=== PATIENT | female | born 1980 | race Caucasian/White ===

== ENCOUNTER 2016-04-16 09:51 | Emergency (ER) | payer OTHER ==
[~2016-04-16 09:51] MED LIST: MOTRIN IB200 M1 PO; PERCOCET 5-3251 EACH PO; PRENATAL1 TA2 PO; ULTRAM(MONOGRAP50 MG PO
[2016-04-16 11:25] LABS: ABSOLUTE BASOPHIL COUNT 0 /CUMM (0.0-0.2); ABSOLUTE EOSINOPHIL COUNT 0.1 /CUMM (0.0-0.7); ABSOLUTE GRANULOCYTE CT 7.9 /CUMM (1.4-6.5); ABSOLUTE LYMPH COUNT 2.7 /CUMM (1.2-3.4); ABSOLUTE MONOCYTE COUNT 0.3 /CUMM (0.10-0.60); BASOPHIL % 0.3 % (0.0-2.0); EOSINOPHIL % 1.3 % (0-5); GRANULOCYTE % 71.4 % (42.2-75.2); HEMATOCRIT 42.2 % (37-47); MEAN CORPUSCULAR HGB 28.6 PG (27.0-31.0); MEAN PLATELET VOLUME 7.4 FL (7.4-10.4); PLATELET COUNT 244 /CUMM (130-400); RBC DISTRIBUTION WIDTH 13.2 % (11.5-14.5); RED BLOOD CELL CT 5.02 /CUMM (4.20-5.40)
--- NOTE | 2016-04-16 11:44 | ED INFLUENZA/URI COMPLAINT ---
History of Present Illness General Chief Complaint: Upper Respiratory Sx/Fever Stated Complaint: COUGH, CONGESTION, CP WHEN COUGHING, X 10 DAYS Source: patient Exam Limitations: no limitations Vital Signs & Intake/Output Vital Signs & Intake/Output Vital Signs Date Time Temp Pulse Resp B/P Pulse O2 O2 Flow FiO2 Ox Delivery Rate 04/16 1204 98.2 107 22 110/70 96 Room Air 04/16 1118 96 Room Air 04/16 1007 98.1 112 22 108/79 97 Room Air Allergies Coded Allergies: MDX - Cinnamon (CINNAMON) (Intermediate, HIVES 10/16/14) No Known Drug Allergies (02/20/16) Reconcile Medications Benzonatate 200 MG CAPSULE 1 CAP PO TID PRN COUGH Ibuprofen 800 MG TABLET 1 TAB PO Q8 PRN PAIN Tramadol HCl 50 MG TABLET 1-2 TAB PO Q6 PRN pain Triage Note: PER PT COUGH X 10 DAYS. NO COUGH OBSERVED WHEN WAITING TO REGISTER, THEN COUGHING NONSTOP WITH TRIAGE. ASLO SPEAKING IN WHISPER, DID NOT SEE A DR SHANDRA 04/04/16 Triage Nurses Notes Reviewed? yes : No Patient currently breastfeeds: No HPI: Patient is a 35-year-old female presents complaining of nonproductive cough for approximately 10 days. Patient also reports anterior chest pain for the past 4- 5 days. Pain is sharp pain that is continuous worsens with cough. Pain is currently moderate to severe. Patient has been taking cough medication over-the -counter without improvement. Patient had a cholecystectomy approximately one month ago. Patient also with rapid heart rate. Patient denies fevers, chills, sick contacts Past History Travel History Traveled to [place] past 21 day No Medical History Any Pertinent Medical History? 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 No Review of Systems Review of Systems Constitutional: Denies: chills, fever. EENTM: Reports: throat pain (voice hoarsness). Respiratory: Reports: cough, short of breath. Denies: hemoptysis, sputum production. Cardiovascular: Reports: chest pain. GI: Reports: no symptoms. Genitourinary: Reports: no symptoms. Musculoskeletal: Reports: no symptoms. Skin: Reports: no symptoms. Neurological/Psychological: Reports: no symptoms. Hematologic/Endocrine: Reports: no symptoms. Immunologic/Allergic: Reports: no symptoms. Physical Exam Physical Exam General Appearance: well developed/nourished, alert, awake Head: atraumatic, normal appearance Eyes: Bilateral: normal appearance, PERRL, EOMI. Ears, Nose, Throat: normal ENT inspection, moist mucous membrane, hearing grossly normal, VOICE HOARSENESS Neck: normal inspection, supple, full range of motion Respiratory: normal breath sounds Cardiovascular: tachycardia (regular rhythm) Gastrointestinal: soft, non-tender Back: normal inspection, normal range of motion Extremities: normal inspection, normal capillary refill, normal range of motion, no edema, no calf tenderness Neurologic/Psych: no motor/sensory deficits, awake, alert, oriented x 3, normal gait, normal mood/affect Skin: intact, normal color, warm/dry Lymphatic: no anterior cervical desiree Core Measures Severe Sepsis Present: No Septic Shock Present: No Progress Differential Diagnosis: influenza, pneumonia, pharyngitis, bronchitis, PE, musculoskeletal pain Plan of Care: Orders Procedure Date/time Status Add-on Test (ER Only) 04/16 1149 Active D-DIMER 04/16 1116 Complete HUMAN BETA HCG SCREEN 04/16 1111 Complete COMPREHENSIVE METABOLIC PANEL 04/16 1111 Complete CBC WITHOUT DIFFERENTIAL 04/16 1111 Complete Laboratory Tests 04/16/16 1116: Anion Gap 10, Estimated GFR > 60, BUN/Creatinine Ratio 34.0 H, Glucose 85, Calcium 9.7, Total Bilirubin 0.4, AST 19, ALT 40, Alkaline Phosphatase 79, Total Protein 7.6, Albumin 4.7, Globulin 2.9, Albumin/Globulin Ratio 1.6, Total Beta HCG NEGATIVE, D-Dimer 316 H, CBC w Diff NO MAN DIFF REQ, RBC 5.02, MCV 84.0, MCH 28.6, RDW 13.2, MPV 7.4, Gran % 71.4, Lymphocytes % 24.1, Monocytes % 2.9, Eosinophils % 1.3, Basophils % 0.3, Absolute Granulocytes 7.9 H, Absolute Lymphocytes 2.7, Absolute Monocytes 0.3, Absolute Eosinophils 0.1, Absolute Basophils 0, PUBS MCHC 34.0 1320: Patient re-evaluated, resting comfortably. Discussed results of labs and chest x-ray with patient. awaiting results of CTA 1405: Results of CTA discussed with patient. Patient resting comfortably, improvement in chest pain after Toradol. Patient appears stable for discharge. (ONOFRE KEARNS,BRAD) Diagnostic Imaging: Viewed by Me: Radiology Read. Discussed w/RAD: Radiology Read. Radiology Impression: PATIENT: JAYNA TYLER PRESENT AGE: 35 PATIENT ACCOUNT NO: [id number] : 81 LOCATION: [facility] ORDERING PHYSICIAN: BRAD KEARNS SERVICE DATE: 04/16/16 EXAM TYPE: RAD - XRY-CHEST XRAY, PA AND LATERAL EXAMINATION: XR CHEST CLINICAL INFORMATION: Cough and chest pain. Evaluate for pneumonia. COMPARISON: None. TECHNIQUE: PA and lateral views of the chest were obtained. FINDINGS: Lungs are well expanded and clear. Cardiomediastinal silhouette, pulmonary ashly, pleura and bones are normal in appearance. There are cholecystectomy clips within the upper abdomen.\E\ IMPRESSION: No acute cardiopulmonary disease. DICTATED BY: MARY THURSTON MD DATE/TIME DICTATED:04/16/161253 CHEESE SUPERVISOR:WOO DATE/TIME TRANSCRIBED:04/16/161253 CONFIDENTIAL, DO NOT COPY WITHOUT APPROPRIATE AUTHORIZATION. <Electronically signed in Other Vendor System> SIGNED BY: MARY THURSTON MD 04/16/16 1300, PATIENT: JAYNA TYLER PRESENT AGE: 35 PATIENT ACCOUNT NO: [id number] : 81 LOCATION: [facility] ORDERING PHYSICIAN: BRAD KEARNS SERVICE DATE: 04/16/16 EXAM TYPE: CAT - CTA CHEST-PULMONARY EMBOLISM EXAMINATION: CT ANGIOGRAM OF THE CHEST WITH CONTRAST (CT PULMONARY ANGIOGRAM FOR PE) CLINICAL INFORMATION: 35-year-old female with tachycardia, shortness of breath and elevated D-dimer test. COMPARISON: CXR from 04/16/2016. TECHNIQUE: Prior to contrast administration, noncontrast localization images were obtained. Subsequently, multidetector volumetric imaging was performed from the thoracic inlet to below the diaphragms following the administration of 95 mL of Optiray 350 intravenous contrast. No contrast reaction reported. Sagittal, coronal, and MIP oblique sagittal reformatted images were obtained on the CT workstation, uploaded to PACS, and reviewed. Total exam dose-length product 174 mGy-cm FINDINGS: QUALITY OF STUDY/ CONTRAST BOLUS: Satisfactory. PULMONARY ARTERIES: Pulmonary arteries are normal in caliber and there are no embolic filling defects within the main, lobar or segmental vessels. THORACIC AORTA: Thoracic aorta is normal in caliber; no acute intramural hematoma, aneurysm or dissection. LUNGS AND PLEURA: The trachea and central airways are widely patent and normal in caliber. Minimal atelectasis is present within the dependent aspect of each lower lobe. No pulmonary consolidation, interstitial edema, pleural effusion or pneumothorax. MEDIASTINUM : Normal heart size. No pericardial effusion. The esophagus and visualized portion of the thyroid gland are unremarkable. LYMPHATICS: No pathologic sized axillary, hilar or mediastinal lymph nodes. UPPER ABDOMEN: No acute findings. The gallbladder is surgically absent. The adrenal glands are normal. No reflux of contrast into the hepatic veins to suggest elevated right heart pressures. OSSEOUS STRUCTURES: The thoracic vertebra have normal density, height and alignment. Incidentally noted is a 1 cm wide focus of nonaggressive sclerosis and trabecular thickening in the right manubrium, possibly a sclerotic hemangioma or enchondroma. There are no suspicious osseous lesions within the thorax. IMPRESSION: No acute imaging findings within the chest. No evidence of pulmonary embolism, cardiomegaly, pneumonia or pleural effusion. DICTATED BY: MARY THURSTON MD DATE/TIME DICTATED:04/16/161344 CHEESE SUPERVISOR:WOO DATE/TIME TRANSCRIBED:04/16/161344 CONFIDENTIAL, DO NOT COPY WITHOUT APPROPRIATE AUTHORIZATION. <Electronically signed in Other Vendor System> SIGNED BY: MARY THURSTON MD 04/16/16 1358 Initial ED EKG: none Departure Departure Time of Disposition: 1409 Disposition: HOME OR SELF CARE Condition: Stable Clinical Impression Primary Impression: Viral upper respiratory infection Referrals: MIRI MOSER MD PATIENT HAS NO PRIMARY CARE DR (PCP/Family) Additional Instructions: Drink plenty fluids and rest. Follow-up with the primary doctor listed in your discharge paperwork to establish a doctor for further evaluation. Call Sunday or Sunday for appointment. Return to the emergency department if breathing worsening, unable stay hydrated, or worsening of symptoms. Departure Forms: Customer Survey General Discharge Information Prescriptions: Current Visit Scripts Benzonatate 1 CAP PO TID PRN COUGH #30 CAP Ibuprofen 1 TAB PO Q8 PRN PAIN #20 TAB Tramadol HCl 1-2 TAB PO Q6 PRN pain #15 TAB
--- NOTE | 2016-04-16 13:00 | RADIOLOGY REPORT ---
EXAMINATION: XR CHEST CLINICAL INFORMATION: Cough and chest pain. Evaluate for pneumonia. COMPARISON: None. TECHNIQUE: PA and lateral views of the chest were obtained. FINDINGS: Lungs are well expanded and clear. Cardiomediastinal silhouette, pulmonary ashly, pleura and bones are normal in appearance. There are cholecystectomy clips within the upper abdomen.\E\ IMPRESSION: No acute cardiopulmonary disease.
--- NOTE | 2016-04-16 13:58 | CT SCAN REPORT ---
EXAMINATION: CT ANGIOGRAM OF THE CHEST WITH CONTRAST (CT PULMONARY ANGIOGRAM FOR PE) CLINICAL INFORMATION: 35-year-old female with tachycardia, shortness of breath and elevated D-dimer test. COMPARISON: CXR from 04/16/2016. TECHNIQUE: Prior to contrast administration, noncontrast localization images were obtained. Subsequently, multidetector volumetric imaging was performed from the thoracic inlet to below the diaphragms following the administration of 95 mL of Optiray 350 intravenous contrast. No contrast reaction reported. Sagittal, coronal, and MIP oblique sagittal reformatted images were obtained on the CT workstation, uploaded to PACS, and reviewed. Total exam dose-length product 174 mGy-cm FINDINGS: QUALITY OF STUDY/CONTRAST BOLUS: Satisfactory. PULMONARY ARTERIES: Pulmonary arteries are normal in caliber and there are no embolic filling defects within the main, lobar or segmental vessels. THORACIC AORTA: Thoracic aorta is normal in caliber; no acute intramural hematoma, aneurysm or dissection. LUNGS AND PLEURA: The trachea and central airways are widely patent and normal in caliber. Minimal atelectasis is present within the dependent aspect of each lower lobe. No pulmonary consolidation, interstitial edema, pleural effusion or pneumothorax. MEDIASTINUM: Normal heart size. No pericardial effusion. The esophagus and visualized portion of the thyroid gland are unremarkable. LYMPHATICS: No pathologic sized axillary, hilar or mediastinal lymph nodes. UPPER ABDOMEN: No acute findings. The gallbladder is surgically absent. The adrenal glands are normal. No reflux of contrast into the hepatic veins to suggest elevated right heart pressures. OSSEOUS STRUCTURES: The thoracic vertebra have normal density, height and alignment. Incidentally noted is a 1 cm wide focus of nonaggressive sclerosis and trabecular thickening in the right manubrium, possibly a sclerotic hemangioma or enchondroma. There are no suspicious osseous lesions within the thorax. IMPRESSION: No acute imaging findings within the chest. No evidence of pulmonary embolism, cardiomegaly, pneumonia or pleural effusion.
[2016-04-16] MEDS ORDERED: TRAMADOL HCL50 M1 PO (14:11)
[2016-04-16] MEDS ORDERED: IBUPROFEN800 M1 PO (14:11)
[2016-04-16] MEDS ORDERED: BENZONATATE200 M1 PO (14:11)
[2016-04-16 14:17] VITALS: BP 108/68
== END 2016-04-16 14:19 ==
LOC: ERH 09:51
PROVIDERS: Emergency Medicine
DX: J06.9 Acute upper respiratory infection, unspecified (principal); R07.9 Chest pain, unspecified
CPT/HCPCS: 96374; J1885

== ENCOUNTER 2016-09-06 15:48 | Emergency (ER) | payer OTHER ==
[~2016-09-06] VITALS: Ht 162.6 cm; Wt 56.2 kg
[~2016-09-06 15:48] MED LIST changes: +BENZONATATE200 M1 PO; +IBUPROFEN800 M1 PO; +TRAMADOL HCL50 M1 PO
[2016-09-06 16:22] LABS: ABSOLUTE BASOPHIL COUNT 0 /CUMM (0.0-0.2); ABSOLUTE EOSINOPHIL COUNT 0.1 /CUMM (0.0-0.7); ABSOLUTE GRANULOCYTE CT 6.5 /CUMM (1.4-6.5); ABSOLUTE LYMPH COUNT 2.5 /CUMM (1.2-3.4); ABSOLUTE MONOCYTE COUNT 0.2 /CUMM (0.10-0.60); BASOPHIL % 0.3 % (0.0-2.0); EOSINOPHIL % 1.5 % (0-5); HEMATOCRIT 41.1 % (37-47); MEAN CORPUSCULAR HGB 28.7 PG (27.0-31.0); MEAN CORPUSCULAR HGB CONC 33.8 G/DL (33.0-37.0); MEAN CORPUSCULAR VOLUME 84.9 FL (81.0-99.0); MEAN PLATELET VOLUME 7.8 FL (7.4-10.4); PLATELET COUNT 208 /CUMM (130-400); RBC DISTRIBUTION WIDTH 13.2 % (11.5-14.5); RED BLOOD CELL CT 4.84 /CUMM (4.20-5.40); WHITE BLOOD CELL COUNT 9.4 /CUMM (4.8-10.8)
--- NOTE | 2016-09-06 17:03 | ED GENERAL ADULT ---
See Addendum History of Present Illness General Chief Complaint: Abdominal Pain/Flank Pain Stated Complaint: 9 WKS PREG LBP RADIATING TO ABD Source: patient Exam Limitations: no limitations Vital Signs & Intake/Output Vital Signs & Intake/Output Vital Signs Date Time Temp Pulse Resp B/P B/P Pulse O2 O2 Flow FiO2 Mean Ox Delivery Rate 09/06 2212 97.6 95 16 107/68 98 Room Air 09/06 1801 97.7 90 16 113/67 100 Room Air 09/06 1553 97.1 116 16 123/81 99 Room Air Allergies Coded Allergies: cinnamon (HIVES 09/06/16) Reconcile Medications Amoxicillin 500 MG TABLET 1 TAB PO BID uti Benzonatate 200 MG CAPSULE 1 CAP PO TID PRN COUGH Ibuprofen 800 MG TABLET 1 TAB PO Q8 PRN PAIN Oxycodone HCl/Acetaminophen (Percocet 5-325 MG Tablet) 5 MG-325 MG TABLET 1 TAB PO BID PRN pain Pnv#102/Iron/Folate #1/Dss/Dha (Vitafol Fe+ Docusate Combo Pck) 90 MG IRON-1 MG- 50 MG-200 MG CAPSULE 1 TAB PO DAILY (Reported) Progesterone,Micronized (Progesterone) 100 MG CAPSULE 1 CAP PO BID HRT ( Reported) Tramadol HCl 50 MG TABLET 1-2 TAB PO Q6 PRN pain Triage Note: PT STATES THAT SHE IS 9 WEEKS AND THAT YESTERDAY SHE WOKE WITH BILATERAL FLANK PAIN THAT RADIATES INTO HER GROIN SINCE YESTERDAY AM. PT HAS HISTORY OF KIDNEY INFECTION AND STATES THAT IT FEELS THE SAME Triage Nurses Notes Reviewed? yes Onset: Abrupt Duration: hour(s): Timing: recent history : Yes Patient currently breastfeeds: No HPI: 09/06/16 5:42 PM 35-year-old female presents to the emergency department complaining of suprapubic abdominal pain and right-sided flank pain. The patient states that she is currently 9 weeks . She is a 2 para 1. Her first was uncomplicated but she was delivered by . She says she's also had kidney infections in the past. She is also status post cholecystectomy. She also has a history of kidney stones. She denies fever or vaginal bleeding. She does admit to dysuria. The onset of the symptoms were abrupt, the duration was just today, the severity is significant as her symptoms required her to come to the emergency department for care. Past History Travel History Traveled to [place] past 21 day No Medical History Any Pertinent Medical History? 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 No Review of Systems Review of Systems Constitutional: Denies: fever. EENTM: Denies: visual changes. Respiratory: Denies: short of breath. Cardiovascular: Denies: chest pain. GI: Reports: abdominal pain. Genitourinary: Reports: dysuria. Musculoskeletal: Reports: back pain. Skin: Denies: rash. Neurological/Psychological: Reports: no symptoms. Hematologic/Endocrine: Denies: bleeding. Immunologic/Allergic: Reports: no symptoms. Physical Exam Physical Exam General Appearance: well developed/nourished, alert, awake, anxious, mild distress Head: atraumatic, normal appearance Eyes: Bilateral: normal appearance, PERRL, EOMI. Ears, Nose, Throat: normal pharynx, normal ENT inspection Neck: normal inspection, supple, full range of motion Respiratory: normal breath sounds, chest non-tender, no respiratory distress Cardiovascular: regular rate/rhythm Peripheral Pulses: 4+ radial (R), 4+ radial (L) Gastrointestinal: soft, tenderness Back: normal range of motion Extremities: normal inspection, normal range of motion Neurologic/Psych: no motor/sensory deficits, awake, alert, oriented x 3 Skin: intact, normal color, warm/dry Core Measures ACS in differential dx? No CVA/TIA Diagnosis: No Severe Sepsis Present: No Septic Shock Present: No Progress Differential Diagnoses I considered the following diagnoses in my evaluation of the patient: [Ectopic , threatened , UTI, pyelonephritis, appendicitis] Plan of Care: Orders Procedure Date/time Status Add-on Test (ER Only) 09/06 172 Active Add-on Test (ER Only) 09/06 1721 Active CULTURE,URINE 09/06 1621 Active URINALYSIS 09/06 155 Complete HUMAN BETA HCG TITRE 09/06 1556 Complete COMPREHENSIVE METABOLIC PANEL 09/06 155 Complete CBC WITHOUT DIFFERENTIAL 09/06 155 Complete Current Medications Sig/Tomi Start time Last Medication Dose Stop Time Status Admin Acetaminophen 1,000 MG ONCE ONE 09/06 1800 CAN (Ofirmev) 09/06 1801 Laboratory Tests 09/06/16 1621: Urine Color YEL, Urine Clarity CLEAR, Urine pH 6.0, Ur Specific [place] 1.025, Urine Protein NEG, Urine Ketones NEG, Urine Nitrite NEG, Urine Bilirubin NEG, Urine Urobilinogen 0.2, Ur Leukocyte Esterase TRACE H, Ur Microscopic SEDIMENT EXAMINED, Urine RBC 1-3, Urine WBC 3-5 H, Ur Epithelial Cells FEW, Urine Bacteria FEW H, Urine Mucus MOD H, Urine Hemoglobin SMALL H, Urine Glucose NEG 09/06/16 1600: Anion Gap 9, Estimated GFR > 60, BUN/Creatinine Ratio 20.0, Glucose 88, Calcium 9.5, Total Bilirubin 0.4, AST 30, ALT 64 H, Alkaline Phosphatase 60, Total Protein 7.3, Albumin 4.3, Globulin 3.0, Albumin/Globulin Ratio 1.4, Beta HCG, Quant 737244.0, CBC w Diff NO MAN DIFF REQ, RBC 4.84, MCV 84.9, MCH 28.7, RDW 13.2, MPV 7.8, Gran % 69.0, Lymphocytes % 26.6, Monocytes % 2.6, Eosinophils % 1.5, Basophils % 0.3, Absolute Granulocytes 6.5, Absolute Lymphocytes 2.5, Absolute Monocytes 0.2, Absolute Eosinophils 0.1, Absolute Basophils 0, PUBS MCHC 33.8 Microbiology 09/06 1621 URINE ROUT: Urine Culture - RECD Initial ED EKG: none Departure Departure Disposition: HOME OR SELF CARE Condition: Stable Clinical Impression Primary Impression: Abdominal pain Referrals: ANNALEE HALL (PCP/Family) Departure Forms: Customer Survey General Discharge Information Prescriptions: Current Visit Scripts Oxycodone HCl/Acetaminophen (Percocet 5-325 MG Tablet) 1 TAB PO BID PRN pain #20 TAB Amoxicillin 1 TAB PO BID #20 TAB Comments Renal ultrasound was unremarkable viability study showed right ovarian cyst that was complex Results below PATIENT: JAYNA TYLER PRESENT AGE: 35 PATIENT ACCOUNT NO: [id number] : 81 LOCATION: [facility] ORDERING PHYSICIAN: AP MCCLELLAN DO SERVICE DATE: 09/06/16 EXAM TYPE: US - US- VIABILITY EXAMINATION: US , VIABILITY CLINICAL INFORMATION: Abdominal pain. LMP 06/30/2016. COMPARISON: No pelvic ultrasounds from this . TECHNIQUE: Real-time sonographic imaging of the uterus and bilateral adnexa. FINDINGS: The uterus is retroverted and measures 11.8 x 6.5 x 8.2 cm in sagittal, AP and transverse dimensions respectively. The cervical length is 2.6 cm. The cervical os is closed. Small nabothian cysts are identified. There is a single live intrauterine with a heart rate of 164 bpm. A yolk sac and pole are identified. movements are also noted. The fetus has an estimated gestational age of 10 weeks and 1 day by ultrasound and an estimated date of delivery of 04/03/2017 which is concordant dates by LMP. The bilateral ovaries are visualized. The right ovary measures 2.6 x 1.8 x 2.3 cm. There is a thick-walled heterogeneous structure within the right adnexa measuring 2.0 x 1.6 x 1.5 cm with peripheral vascularity on color Doppler imaging. Primary diagnostic consideration is for a corpus luteal cyst. An ectopic can also have a similar appearance but is less favored given the presence of an intrauterine and the relative rarity of a heterotopic . The left ovary measures 2.9 x 1.8 x 0.9 cm. Flow was demonstrated within the bilateral ovaries. IMPRESSION: 1. A single live intrauterine with an estimated gestational age of 10 weeks and 1 day by ultrasound, corresponding to an estimated date of delivery of 04/03/2017. A heart rate of 164 bpm is identified. A yolk sac and pole are visualized. movements are also noted. 2. A complex thick-walled heterogeneous structure within the right adnexa measuring 2.0 x 1.6 x 1.5 cm and demonstrating peripheral vascularity on color Doppler imaging. Primary diagnostic consideration is for a corpus luteal cyst. An adnexal can also have a similar appearance but is less favored given the appearance of an intrauterine and the relative rarity of a heterotopic (simultaneous intrauterine and ectopic pregnancies). No free fluid is identified. Recommend OB consultation and follow-up. A short interval follow-up pelvic ultrasound may also be obtained if the patient's clinical symptoms persist or worsen. 3. The cervical os is closed. The cervical length is 2.6 cm. This critical result was discussed with Dr. Ap Mcclellan at 9:02 PM on 09/06/2016 and it was ascertained that the content and urgency of the report was understood at the time of direct communication. DICTATED BY: RAUL REYNOLDS MD DATE/TIME DICTATED:09/06/162034 C JAVA DEVELOPER:WOO DATE/TIME TRANSCRIBED:09/06/162034 CONFIDENTIAL, DO NOT COPY WITHOUT APPROPRIATE AUTHORIZATION. <Electronically signed in Other Vendor System> SIGNED BY: RAUL REYNOLDS MD 09/06/162105 The patient's pain was well-controlled. I discussed the results of the ultrasound with the patient, and with the on-call cornetist Dr. Hurd. She was informed of the ovarian cyst, and the possibility of heteroectopic . She was told to return to the emergency department immediately should the pain get worse or if she had any vaginal bleeding. She has a follow- up appointment scheduled tomorrow with her MID LEVEL GAME DESIGNER physician Dr. Frances. She was treated with amoxicillin and told to take Percocet only as needed for pain. The patient understood the instructions. I considered the diagnosis of appendicitis. She has no fever. She has no leukocytosis She has an ovarian cyst on ultrasound. She has a follow-up appointment in the a.m. 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 Critical Care Note Critical Care Note Critical Care Time: non-applicable
[2016-09-06] MEDS ORDERED: VITAFOL FE+ DO1 EACH PO (17:29)
[2016-09-06] MEDS ORDERED: PROGESTERONE100 M2 PO (17:29)
--- NOTE | 2016-09-06 20:56 | ULTRASOUND REPORT ---
EXAMINATION: US ABDOMEN COMPLETE CLINICAL INFORMATION: Right upper quadrant abdominal pain. Status post cholecystectomy. Evaluate for biliary ductal dilatation. COMPARISON: MRI abdomen 02/21/2016. TECHNIQUE: Real-time imaging of the abdominal viscera. FINDINGS: PANCREAS: Normal. ABDOMINAL AORTA: The proximal segment is normal in caliber. INFERIOR VENA CAVA: Visualized portions are normal. LIVER: Unremarkable. The liver demonstrates normal size, contour and echogenicity. No focal lesion or intrahepatic biliary duct dilatation. GALLBLADDER: Status post cholecystectomy. COMMON BILE DUCT: The common bile duct is mildly prominent measuring 0.7 cm in diameter. This is not unexpected following cholecystectomy. RIGHT KIDNEY: Unremarkable. No hydronephrosis. No renal calculi or focal parenchymal lesions. The kidney measures 9.2 cm in maximum dimension. LEFT KIDNEY: Unremarkable. No hydronephrosis. No renal calculi or focal parenchymal lesions. The kidney measures 11.1 cm in maximum dimension. SPLEEN: Unremarkable. The spleen measures 10.2 cm in maximum dimension. FREE FLUID: None. IMPRESSION: No acute findings within the abdomen to explain patient symptomatology. Status post cholecystectomy. Mild prominence of the common bile duct which is visualized measuring up to 7 mm in diameter. Mild prominence of the common bile duct is not unexpected following cholecystectomy. There are no visible intraductal stones.
--- NOTE | 2016-09-06 21:06 | ULTRASOUND REPORT ---
EXAMINATION: US , VIABILITY CLINICAL INFORMATION: Abdominal pain. LMP 06/30/2016. COMPARISON: No pelvic ultrasounds from this . TECHNIQUE: Real-time sonographic imaging of the uterus and bilateral adnexa. FINDINGS: The uterus is retroverted and measures 11.8 x 6.5 x 8.2 cm in sagittal, AP and transverse dimensions respectively. The cervical length is 2.6 cm. The cervical os is closed. Small nabothian cysts are identified. There is a single live intrauterine with a heart rate of 164 bpm. A yolk sac and pole are identified. movements are also noted. The fetus has an estimated gestational age of 10 weeks and 1 day by ultrasound and an estimated date of delivery of 04/03/2017 which is concordant dates by LMP. The bilateral ovaries are visualized. The right ovary measures 2.6 x 1.8 x 2.3 cm. There is a thick-walled heterogeneous structure within the right adnexa measuring 2.0 x 1.6 x 1.5 cm with peripheral vascularity on color Doppler imaging. Primary diagnostic consideration is for a corpus luteal cyst. An ectopic can also have a similar appearance but is less favored given the presence of an intrauterine and the relative rarity of a heterotopic . The left ovary measures 2.9 x 1.8 x 0.9 cm. Flow was demonstrated within the bilateral ovaries. IMPRESSION: 1. A single live intrauterine with an estimated gestational age of 10 weeks and 1 day by ultrasound, corresponding to an estimated date of delivery of 04/03/2017. A heart rate of 164 bpm is identified. A yolk sac and pole are visualized. movements are also noted. 2. A complex thick-walled heterogeneous structure within the right adnexa measuring 2.0 x 1.6 x 1.5 cm and demonstrating peripheral vascularity on color Doppler imaging. Primary diagnostic consideration is for a corpus luteal cyst. An adnexal can also have a similar appearance but is less favored given the appearance of an intrauterine and the relative rarity of a heterotopic (simultaneous intrauterine and ectopic pregnancies). No free fluid is identified. Recommend OB consultation and follow-up. A short interval follow-up pelvic ultrasound may also be obtained if the patient's clinical symptoms persist or worsen. 3. The cervical os is closed. The cervical length is 2.6 cm. This critical result was discussed with Dr. Ap Adams at 9:02 PM on 09/06/2016 and it was ascertained that the content and urgency of the report was understood at the time of direct communication.
[2016-09-06] MEDS ORDERED: PERCOCET 5-3251 EACH PO (21:49)
[2016-09-06] MEDS ORDERED: AMOXICILLIN500 M3 PO (21:49)
[2016-09-07] MEDS ORDERED: ZOFRAN ODT4 M1 SL (00:29)
[2016-09-07 00:46] VITALS: BP 108/71
== END 2016-09-07 00:46 ==
LOC: ERH 15:48
PROVIDERS: Emergency Medicine
DX: O99.89 Other specified diseases and conditions complicating pregnancy, childbirth and the puerperium (principal); R10.9 Unspecified abdominal pain; Z3A.09 9 weeks gestation of pregnancy
CPT/HCPCS: 81001; 87086; J3101

== ENCOUNTER 2016-09-08 12:16 | Emergency (ER) | payer OTHER ==
[~2016-09-08 12:16] MED LIST changes: +AMOXICILLIN500 M3 PO; +PROGESTERONE100 M2 PO; +VITAFOL FE+ DO1 EACH PO; +ZOFRAN ODT4 M1 SL
--- NOTE | 2016-09-08 12:51 | ED GI/GU/ABDOMINAL COMPLAINT ---
History of Present Illness General Chief Complaint: General Adult Stated Complaint: 10 WKS PREG BLEEDING Source: patient, old records Exam Limitations: no limitations Vital Signs & Intake/Output Vital Signs & Intake/Output Vital Signs Date Time Temp Pulse Resp B/P B/P Pulse O2 O2 Flow FiO2 Mean Ox Delivery Rate 09/08 1413 81 18 101/70 100 Room Air 09/08 1306 Room Air 09/08 1220 99.4 110 16 116/76 99 Room Air Allergies Coded Allergies: cinnamon (HIVES 09/06/16) Reconcile Medications Pnv#102/Iron/Folate #1/Dss/Dha (Vitafol Fe+ Docusate Combo Pck) 90 MG IRON-1 MG- 50 MG-200 MG CAPSULE 1 TAB PO DAILY (Reported) Triage Note: TRIAGE; PT TO ED, STATES SHE IS 10 WEEKS AND STARTED HAVING VAGINAL BLEEDING LAST NIGHT. IS HAVING LOWER ABDOMINAL CRAMPING. IS NOT USING A PAD, UNSURE HOW MUCH BLEEDING, PT DENIES ANY BLOOD CLOTS. OB IS DR OLIVIER. . HAD A CHECKUP WITH OB YESTERDAY AND DID PAP SMEAR. DID NOT HAVE THE BLEEDING AT THAT TIME. CALLED OB OFFICE AND ADVISED TO COME TO THE ER. Triage Nurses Notes Reviewed? yes ? Y Is pt currently ? No Onset: Abrupt Duration: better Timing: recent history Quality/Severity: moderate Severity Numbers: 5 Radiation: no radiation HPI: Patient is a 35-year-old female who is a approximately 10 weeks who presents emergency room with concerns of vaginal bleeding. Patient was evaluated at [place] emergency room on September 06, 3 days ago for concerns of suprapubic abdominal pain where she received a viability transvaginal ultrasound showing single live uterine estimated gestation age 10 weeks 1 day, heart tones 164 bpm and a complex thickened heterogeneous structure of the right adnexa measuring 2 x 1.5 x 1.5 and was there is concern per dictation of radiologist for corpus luteal cyst however does state that and adnexal can also have similar appearance Patient states that the right lower quadrant and pelvic pain is better but still persist however patient yesterday follow-up with her SAMPLE PROCESSOR Dr. Olivier and later on that evening last night patient had intermittent vaginal spotting and bleeding was persisted throughout this morning however currently she states the bleeding has stopped. Denies any fever chills lightheaded sensation dizziness back pain dysuria hematuria nausea vomiting Past History Travel History Traveled to [place] past 21 day No Medical History Any Pertinent Medical History? 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 No Review of Systems Review of Systems Constitutional: Reports: no symptoms. EENTM: Reports: no symptoms. Respiratory: Reports: no symptoms. Cardiovascular: Reports: no symptoms. GI: Reports: see HPI, abdominal pain. Genitourinary: Reports: see HPI. Musculoskeletal: Reports: no symptoms. Skin: Reports: no symptoms. Neurological/Psychological: Reports: no symptoms. Hematologic/Endocrine: Reports: no symptoms. Immunologic/Allergic: Reports: no symptoms. All Other Systems: Reviewed and Negative Physical Exam Physical Exam General Appearance: no apparent distress, comfortable Gastrointestinal: normal bowel sounds, soft, PELVIC POINT TENDERNESS NO REBOUND TENDERNESS NO PERITONEAL SIGNS Pelvic: normal external exam, normal speculum exam, no cerv. motion tender, no masses, CERVIX OS IS CLOSED NO ACTIVE BLEEDING Comments: Well-developed well-nourished person in no acute distress HEENT: Normal EENT exam, Neck: Supple, no lymphadenopathy, normal range of motion without pain or tenderness Back: Nontender, no CVA tenderness. Abdomen: Soft, nontender nondistended, no appreciable organomegaly. Normal bowel sounds. No ascites Extremity: No edema, no calf tenderness to palpation, normal and equal pulses. Neuro: Alert oriented x3, motor sensory normal, Skin: No appreciable rash on exposed skin, skin is warm and dry. Psych: Mood and affect is normal, memory and judgment is normal. Core Measures ACS in differential dx? No Severe Sepsis Present: No Septic Shock Present: No Progress Differential Diagnosis: AAA, AMI, appendicitis, biliary colic, bowel obstruction , colon cancer, cholecystitis, diverticulitis, ectopic , endometritis, gastritis, hepatitis, hernia, ischemic bowel, inflamm bowel dis, intrauterine , kidney stone, ovarian cyst, ovarian torsion, pancreatitis, PID/ cervicitis, peptic ulcer, PUD/GERD, perforated viscous, SBO, threatened AB, UTI/ pyelo Plan of Care: Orders Procedure Date/time Status Regular Diet 09/09 B Active TYPE & SCREEN (NOT X-MATCH) 09/08 1315 Complete URINALYSIS 09/08 1259 Complete PARTIAL THROMBOPLASTIN TIME 09/08 125 Complete PROTHROMBIN TIME 09/08 125 Complete HUMAN BETA HCG TITRE 09/08 125 Complete COMPREHENSIVE METABOLIC PANEL 09/08 125 Complete CBC WITHOUT DIFFERENTIAL 09/08 1258 Complete Laboratory Tests 09/08/16 1450: Urinalysis MANY H, Urine Color YEL, Urine Clarity HAZY H, Urine pH 7.5, Ur Specific [place] 1.010, Urine Protein NEG, Urine Ketones NEG, Urine Nitrite NEG, Urine Bilirubin NEG, Urine Urobilinogen 0.2, Ur Leukocyte Esterase TRACE H, Ur Microscopic SEDIMENT EXAMINED, Urine RBC RARE, Urine WBC RARE, Ur Epithelial Cells MOD H, Urine Bacteria RARE H, Urine Hemoglobin TRACE-INTACT, Urine Glucose NEG 09/08/16 1315: Anion Gap 7, Estimated GFR > 60, BUN/Creatinine Ratio 20.0, Glucose 89, Calcium 9.1, Total Bilirubin 0.3, AST 21, ALT 68 H, Alkaline Phosphatase 53, Total Protein 6.2 L, Albumin 3.6, Globulin 2.6, Albumin/Globulin Ratio 1.4, Beta HCG, Quant 72291.0, PT 11.7, INR 1.12, APTT 28, CBC w Diff NO MAN DIFF REQ, RBC 4.40, MCV 83.7, MCH 28.5, RDW 12.8, MPV 7.3 L, Gran % 74.1, Lymphocytes % 21.3, Monocytes % 3.6, Eosinophils % 0.7, Basophils % 0.3, Absolute Granulocytes 4.9, Absolute Lymphocytes 1.4, Absolute Monocytes 0.2, Absolute Eosinophils 0, Absolute Basophils 0, PUBS MCHC 34.1 Patient upon initial examination was resting comfortably at bedside. No active vaginal bleeding noted at this time. I initially discussed plan with Dr. Olivier who will receive a phone call once blood work and ultrasound is resulted Patient currently has no vaginal bleeding on exam, Ultrasound showed confirmed no change in IUP and persistent right adnexal mass 1740- Discussed patient with Dr. Olivier who agrees with follow-up in office upon discharge patient looks well no apparent distress and will comply with discharge instructions and had no questions Discussed disposition plan with Dr. OCHOA who agrees (TRISTA KEARNS,SHERON) Diagnostic Imaging: Viewed by Me: Ultrasound. Radiology Impression: SEE COMMENTS Initial ED EKG: none Comments: PATIENT: JAYNA TYLER PRESENT AGE: 35 PATIENT ACCOUNT NO: [id number] : 81 LOCATION: [facility] ORDERING PHYSICIAN: SHERON KEARNS SERVICE DATE: 09/08/16 EXAM TYPE: US - US- VIABILITY EXAMINATION: US , VIABILITY CLINICAL INFORMATION: Abdominal pain, vaginal bleeding, recent ultrasound with mild suspicion of heterotopic COMPARISON: 09/07/2015 TECHNIQUE: Sonographic evaluation of was performed transabdominally and transvaginally. FINDINGS: There is an intrauterine gestational sac containing a yolk sac and pole. [place]-rump length of 3.1 cm corresponds to a gestational age of 10 weeks 4 days (estimated date of delivery 04/02/2017). A heart beat is identified with a rate of 167 bpm. movement is observed. The cervix measures 3.2 cm in length. The right ovary measures 3.0 x 2.0 x 1.9 cm, and Doppler evaluation demonstrates flow to the right ovary. There is a 1.3 x 1.3 x 1.4 cm thick-walled cyst in the right ovary with some peripheral flow, mildly decreased in size from the prior exam (previously 2.0 x 1.6 x 1.5 cm). Appearance is most suggestive of a corpus luteum cyst, with no material seen in the anechoic central portion. The left ovary measures 3.2 x 1.9 x 1.6 cm and has a normal appearance with flow demonstrated on Doppler imaging. No free fluid is identified. IMPRESSION: 1. Single live intrauterine , with estimated gestational age of 10 weeks 4 days. 2. Redemonstrated thick-walled right ovarian cyst, currently measuring 1.3 x 1.3 x 1.4 cm which is mildly decreased in size from the prior exam. Appearance is most consistent with a corpus luteum cyst in the setting of an intrauterine . DICTATED BY: GREY BLACKMON MD Departure Departure Disposition: HOME OR SELF CARE Condition: Stable Clinical Impression Primary Impression: Vaginal bleeding in Secondary Impressions: Abdominal pain, Ovarian cyst Referrals: ИВАН CARMONA,DEIDRE Sharp (PCP/Family) Additional Instructions: As discussed begin [id number] Tylenol for pain. Follow-up with your primary SAMPLE PROCESSOR on Sunday for recheck of symptoms. If symptoms worsen return to emergency room Departure Forms: Customer Survey General Discharge Information
[2016-09-08 13:22] LABS: ABSOLUTE BASOPHIL COUNT 0 /CUMM (0.0-0.2); ABSOLUTE EOSINOPHIL COUNT 0 /CUMM (0.0-0.7); ABSOLUTE GRANULOCYTE CT 4.9 /CUMM (1.4-6.5); ABSOLUTE LYMPH COUNT 1.4 /CUMM (1.2-3.4); ABSOLUTE MONOCYTE COUNT 0.2 /CUMM (0.10-0.60); BASOPHIL % 0.3 % (0.0-2.0); EOSINOPHIL % 0.7 % (0-5); GRANULOCYTE % 74.1 % (42.2-75.2); HEMATOCRIT 36.8 % (37-47); MEAN CORPUSCULAR HGB 28.5 PG (27.0-31.0); MEAN CORPUSCULAR HGB CONC 34.1 G/DL (33.0-37.0); MEAN CORPUSCULAR VOLUME 83.7 FL (81.0-99.0); MEAN PLATELET VOLUME 7.3 FL (7.4-10.4); PLATELET COUNT 183 /CUMM (130-400); RBC DISTRIBUTION WIDTH 12.8 % (11.5-14.5); WHITE BLOOD CELL COUNT 6.6 /CUMM (4.8-10.8)
[2016-09-08 13:34] LABS: PT 11.7 SEC (9.4-12.5); PTT 28 SEC (25-37)
--- NOTE | 2016-09-08 14:44 | ULTRASOUND REPORT ---
EXAMINATION: US , VIABILITY CLINICAL INFORMATION: Abdominal pain, vaginal bleeding, recent ultrasound with mild suspicion of heterotopic COMPARISON: 09/07/2015 TECHNIQUE: Sonographic evaluation of was performed transabdominally and transvaginally. FINDINGS: There is an intrauterine gestational sac containing a yolk sac and pole. [place]-rump length of 3.1 cm corresponds to a gestational age of 10 weeks 4 days (estimated date of delivery 04/02/2017). A heart beat is identified with a rate of 167 bpm. movement is observed. The cervix measures 3.2 cm in length. The right ovary measures 3.0 x 2.0 x 1.9 cm, and Doppler evaluation demonstrates flow to the right ovary. There is a 1.3 x 1.3 x 1.4 cm thick-walled cyst in the right ovary with some peripheral flow, mildly decreased in size from the prior exam (previously 2.0 x 1.6 x 1.5 cm). Appearance is most suggestive of a corpus luteum cyst, with no material seen in the anechoic central portion. The left ovary measures 3.2 x 1.9 x 1.6 cm and has a normal appearance with flow demonstrated on Doppler imaging. No free fluid is identified. IMPRESSION: 1. Single live intrauterine , with estimated gestational age of 10 weeks 4 days. 2. Redemonstrated thick-walled right ovarian cyst, currently measuring 1.3 x 1.3 x 1.4 cm which is mildly decreased in size from the prior exam. Appearance is most consistent with a corpus luteum cyst in the setting of an intrauterine .
[2016-09-08 17:50] VITALS: BP 112/61
== END 2016-09-08 17:55 ==
LOC: ERH 12:16
PROVIDERS: Physician Assistant
DX: O20.9 Hemorrhage in early pregnancy, unspecified (principal); N83.202 Unspecified ovarian cyst, left side; Z3A.10 10 weeks gestation of pregnancy
CPT/HCPCS: 81001

== ENCOUNTER 2017-04-04 04:15 | Inpatient (IN) | payer OTHER ==
--- NOTE | 2017-04-03 19:24 | History & Physical ---
General Information and HPI MD Statement: I have seen and personally examined JAYNA TYLER and documented this H&P. The patient is a 36 year old female at [39] weeks and [3] days gestation who presented with a chief complaint of [repeat elective ]. History of Present Illness: This patient is a 36-year-old 2 para 1 LMP 06/30/2016 EDC 04/08/2017 at 39 weeks and 3 days who presents today for planned elective repeat section. Her care is complete and remarkable for gestational diabetes, managed by [facility] and well controlled on diet. Last hemoglobin A1c 1 week ago was 5.8. Estimated weight is 8-1/2-9 pounds. 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 spouse, child Review of Systems Review of Systems Constitutional: Reports: no symptoms. EENTM: Reports: no symptoms. Cardiovascular: Reports: no symptoms. Respiratory: Reports: no symptoms. GI: Reports: no symptoms. Genitourinary: Reports: no symptoms. Musculoskeletal: Reports: no symptoms. Skin: Reports: no symptoms. Neurological/Psychological: Reports: no symptoms. Hematologic/Endocrine: Reports: no symptoms. Immunologic/Allergic: Reports: no symptoms. All Other Systems: Reviewed and Negative Exam & Diagnostic Data Obstetric Exam Wgt Gained During : 30 pounds Pelvimetry: Gynecoid Dilation (cm): 0 Effacement (%): 0 Station: 0 Membranes: intact Fluid: unknown Fundal Height (cm): 41 Multiple Gestation? No Contractions: None Patient for Induction? No Labs Blood Type & Rh: O+ Antibody Screen: Negative Hct/Hgb & Platelets #1: Hct/Hgb & Platelets #2: Rubella: Immune VDRL #1: Nonreactive VDRL #2: Nonreactive HbsAg: Negative HIV #1: Negative HIV #2 Negative 1 Hr P Group B Strep: Negative Initial Ultrasound: Within normal limits Anatomy Ultrasound: Within normal limits Genetic Testing: Negative Assessment/Plan Assessment/Plan: 39 week previous plan: Repeat section As Ranked By This Provider Problem List: 1. Previous section Core Measures Venous Thromboembolism VTE Risk Factors Surgery No Mechanical VTE Prophylaxis d/t N/A MechProphylax Ordered No VTE Pharm Prophylaxis d/t Bleeding (Active)
[~2017-04-04] VITALS: Ht 162.6 cm; Wt 66.7 kg
[2017-04-05 02:14] VITALS: BP 116/72
[2017-04-05 08:25] LABS: ABSOLUTE BASOPHIL COUNT 0 /CUMM (0.0-0.2); ABSOLUTE EOSINOPHIL COUNT 0.1 /CUMM (0.0-0.7); ABSOLUTE GRANULOCYTE CT 8.2 /CUMM (1.4-6.5); ABSOLUTE LYMPH COUNT 1.4 /CUMM (1.2-3.4); ABSOLUTE MONOCYTE COUNT 0.2 /CUMM (0.10-0.60); BASOPHIL % 0.2 % (0.0-2.0); EOSINOPHIL % 1.1 % (0-5); GRANULOCYTE % 82.8 % (42.2-75.2); MEAN CORPUSCULAR HGB 29.3 PG (27.0-31.0); MEAN CORPUSCULAR HGB CONC 33.9 G/DL (33.0-37.0); MEAN CORPUSCULAR VOLUME 86.4 FL (81.0-99.0); MEAN PLATELET VOLUME 7.9 FL (7.4-10.4); PLATELET COUNT 168 /CUMM (130-400); RBC DISTRIBUTION WIDTH 13.7 % (11.5-14.5); RED BLOOD CELL CT 3.87 /CUMM (4.20-5.40); WHITE BLOOD CELL COUNT 9.9 /CUMM (4.8-10.8)
[2017-04-05 08:41] LABS: HEMATOCRIT 33.4 % (37-47)
--- NOTE | 2017-04-05 14:10 | Operative Report ---
Operative/Inv Procedure Report Surgery Date: 04/04/17 Name of Procedure: Repeat elective Pre-Operative Diagnosis: Previous Post-Operative Diagnosis: Same Estimated Blood Loss: 800 mL Surgeon/Java Security Engineer: Carmenza Barrios MD,Alfred Hurd M.D. Anesthesia: spinal Operative/Procedure Note Note: The patient was brought to the operating room and placed on the OR table in the sitting position where she underwent spinal anesthetic without complication. She was repositioned repositioned into dorsal supine with a block under her right. Venodyne boots were placed and activated. A Barraza catheter was placed and drained clear yellow urine. The abdomen was prepped and draped in usual sterile fashion. Skin was tested and a Pfannenstiel skin incision made over the old scar and taken down to the layer of the fascia. The fascia was nicked in the midline and extended bilaterally. The rectus muscles were and the perineal cavity was entered bluntly. A [place] bladder blade was inserted to protect the bladder from the operative field. A bladder flap was created using Metzenbaum scissors. A low transverse uterine incision was then made and a liveborn male infant was delivered atraumatically and handed off to the waiting clin nurse. Placenta was then manually removed and taken out intact with three-vessel cord. The uterus was exteriorized and wiped clean with a wet lap sponge. The uterine incision was closed in 2 layers, the second imbricating the first. The abdomen and pelvis were copiously irrigated and the uterus was placed back into the abdominal cavity. Suture line was once again visualized and hemostasis was guaranteed. The rectus muscles were reapproximated with a mattress suture of 0 Polysorb. Fascia was closed using 0 Polysorb in a running nonlocking fashion. Subcutaneous tissues were irrigated and coagulated were needed and skin was closed using xiang. A dry sterile dressing was applied to the wound the patient was sent to recovery in good condition. All needle, sponge, and instrument counts were correct at the end of the procedure 4.
--- NOTE | 2017-04-06 08:31 | Labor & Delivery Summary ---
Delivery Summary Section: Section: repeat # Placenta: Placenta: normal, 3 vessel, manual, nuchal cord (x_) Baby's Weight: 7-6 Apgars - 1 Min: 9 Apgars - 5 Min: 9
--- NOTE | 2017-04-06 08:31 | PN- General Surgery ---
Subjective Subjective: no c/o Review of Systems: neg Objective Vital Signs and I&Os vss afebrile Physical Exam: incision c/d/i ff ext nt Assessment/Plan Assessment/Plan s/p rc/s pod2 stable discharge tomorrow Problem List: 1. Previous section Core Measures Venous Thromboembolism VTE Risk Factors Surgery No Mechanical VTE Prophylaxis d/t N/A MechProphylax Ordered No VTE Pharm Prophylaxis d/t Bleeding (Active)
[2017-04-06] MEDS ORDERED: IBUPROFEN800 M1 PO (08:34)
[2017-04-06] MEDS ORDERED: PERCOCET 5-3251 EACH PO (08:34)
[2017-04-06] MEDS ORDERED: DOCUSATE SODIU100 M3 PO (08:34)
== END 2017-04-07 11:00 | DRG 540 ==
LOC: SDA 04:15 → UNDOADMIN 04:15 → GNO 05:59
PROVIDERS: Obstetrics & Gynecology
PROC: 10D00Z1 Extraction of Products of Conception, Low, Open Approach (ICD-10-PCS; principal; 2017-04-04)
DX: O34.211 Maternal care for low transverse scar from previous cesarean delivery (principal); N85.8 Other specified noninflammatory disorders of uterus; Z3A.39 39 weeks gestation of pregnancy; O69.81X0 Labor and delivery complicated by cord around neck, without compression, not applicable or unspecified; O24.420 Gestational diabetes mellitus in childbirth, diet controlled; Z37.0 Single live birth
CPT/HCPCS: GNOS; 36415; 81001; 87086; 88307; J0131; J1885; J2765; J7120